=== PATIENT | female | born 2000 | race Caucasian/White ===

== ENCOUNTER 2022-03-04 20:34 | Day surgery (SDC) | payer OTHER ==
[2022-03-04 21:09] VITALS: BMI 33.5
[2022-03-04] MEDS ORDERED: hydrALAZINE 20 MG/ML VIAL SLOW IVP PRN (22:04)
[2022-03-04 22:58] LABS: Bilirubin Neg (Negative); Blood, Urine 25 (Negative); Glucose, Urine (Dipstick) Normal (Negative); Ketone, Urine 5 mg/dL (Negative); Leukocyte 100 (Negative); Nitrite Negative (Negative); Protein, Urine (Dipstick) 30 mg/dl (Neg-Trace); Specific Gravity, Urine 1.025 (1.005-1.030); Urobilinogen Normal mg/dL (Less than 2)
[2022-03-04 23:01] LABS: Clarity Turbid (Clear)
[2022-03-04 23:07] LABS: Bacteria/HPF 3+ HPF (None Seen); Calcium Oxalate Crystals 1+ HPF (None Seen); Mucous/LPF 4+ LPF (<2+); RBC/HPF 0-3 HPF (0-3); Squamous Epithelial 21-50 HPF (0-3)
[2022-03-04 23:55] LABS: Bilirubin Neg (Negative); Blood, Urine 10 (Negative); Clarity Cloudy (Clear); Glucose, Urine (Dipstick) Normal (Negative); Ketone, Urine 5 mg/dL (Negative); Leukocyte 25 (Negative); Nitrite Negative (Negative); Protein, Urine (Dipstick) 30 mg/dl (Neg-Trace); Specific Gravity, Urine 1.025 (1.005-1.030); Urobilinogen Normal mg/dL (Less than 2)
[2022-03-05 00:03] LABS: Bacteria/HPF 1+ HPF (None Seen); RBC/HPF 0-3 HPF (0-3)
[2022-03-05 00:04] LABS: Mucous/LPF 4+ LPF (<2+)
== END 2022-03-05 00:25 | disposition home or self-care (01) ==
LOC: CSHLD/OP 20:34
PROVIDERS: ATTEND Obstetrics & Gynecology
DX: O46.93 Antepartum hemorrhage, unspecified, third trimester (principal); O36.8130 Decreased fetal movements, third trimester, not applicable or unspecified; O98.813 Other maternal infectious and parasitic diseases complicating pregnancy, third trimester; B37.31 Acute candidiasis of vulva and vagina; B96.89 Other specified bacterial agents as the cause of diseases classified elsewhere; Z3A.32 32 weeks gestation of pregnancy
CPT/HCPCS: 76819; 81001; 87480; 87510; 87660

== ENCOUNTER 2022-03-21 20:04 | Day surgery (SDC) | payer OTHER ==
[2022-03-21 20:23] VITALS: BMI 33.9
[2022-03-21] MEDS ORDERED: hydrALAZINE 20 MG/ML VIAL SLOW IVP PRN (20:23)
[2022-03-21] MEDS ORDERED: Promethazine HCl 25 MG in Sodium Chloride 0.9% 50 ML IVPB PRN (20:24)
[2022-03-21] MEDS ORDERED: Metoclopramide HCl 10 MG/2 ML VIAL IVP SCH (20:30)
[2022-03-21] MEDS ORDERED: Lactated Ringer's 1,000 ML IV SCH (20:30)
[2022-03-21 21:11] LABS: #Monocytes 0.4 10x3/uL (0.0-1.1); #Neutrophils 7.5 10x3/uL (1.5-8.4); %Basophils 0.2 % (0.0-2.0); %Eosinophils 0.1 % (0.0-6.0); %Lymphocytes 9.9 % (18.0-47.0); %Monocytes 4.3 % (0.0-10.0); Hemoglobin 11.4 g/dL (12.0-15.5); Mean Corpuscular HGB CONC 32.9 g/dL (32.0-36.0); Mean Corpuscular Hemoglobin 26.2 pg (27.0-33.0); Mean Corpuscular Volume 79.8 fl (81.6-98.3); Mean Platelet Volume 10.3 fl (7.4-10.4); Platelet Count 207 10x3/uL (150-450); RBC Distribution Width 14.3 % (11.5-14.5); Red Blood Cell (RBC) Count 4.35 10x6/uL (3.90-5.03); White Blood Cell (WBC) Count 8.8 10x3/uL (3.5-10.5)
[2022-03-21 21:16] LABS: ALT (SGPT) 33 U/L (8-55); AST (SGOT) 19 U/L (5-34); Albumin 3.6 g/dL (3.5-5.0); Alkaline Phosphatase 122 U/L (40-110); Anion Gap 16 mmol/L (10-20); BUN (Urea Nitrogen) 10 mg/dL (7.0-18.7); Bilirubin, Total 0.6 mg/dL (0.2-1.2); Calc. Creatinine Clearance 162 mL/min (70-130); Calcium 8.9 mg/dL (7.8-10.44); Carbon Dioxide 17 mmol/L (22-29); Chloride 108 mmol/L (98-107); Estimated GFR 127; Globulin 3.5 g/dL (2.4-3.5); Glucose 81 mg/dL (70-105); Potassium 3.7 mmol/L (3.5-5.1); Protein, Total 7.1 g/dL (6.0-8.3); Sodium 137 mmol/L (136-145)
[2022-03-21 21:37] LABS: SARS-CoV-2 NAA Rapid Test Not Detected (NotDetected)
[2022-03-22] MEDS ORDERED: Metoclopramide HCl 10 MG/2 ML VIAL IVP SCH (06:00)
== END 2022-03-21 22:30 | disposition home or self-care (01) ==
LOC: CSHLD/OP 20:04
PROVIDERS: ATTEND Obstetrics & Gynecology
DX: O21.2 Late vomiting of pregnancy (principal); O26.893 Other specified pregnancy related conditions, third trimester; R10.13 Epigastric pain; Z20.822 Contact with and (suspected) exposure to COVID-19; Z3A.34 34 weeks gestation of pregnancy
CPT/HCPCS: 80053; 85025; J2550; J2765

== ENCOUNTER 2022-04-14 20:03 | Day surgery (SDC) | payer OTHER ==
[2022-04-14 20:35] VITALS: BMI 32.3
[2022-04-14] MEDS ORDERED: hydrALAZINE 20 MG/ML VIAL SLOW IVP PRN (21:55)
== END 2022-04-14 22:22 | disposition home or self-care (01) ==
LOC: CSHLD/OP 20:03
PROVIDERS: ATTEND Obstetrics & Gynecology
DX: O47.1 False labor at or after 37 completed weeks of gestation (principal); Z3A.40 40 weeks gestation of pregnancy

== ENCOUNTER 2022-04-20 05:30 | Inpatient (IN) | payer OTHER ==
[2022-04-27] MEDS ORDERED: Promethazine HCl 25 MG/ML VIAL IM PRN ×2 (01:48→14:48)
[2022-04-27] MEDS ORDERED: Tranexamic Acid 1,000 MG in Sodium Chloride 0.9% 250 ML 250 ML IVPB PRN (01:48)
[2022-04-27] MEDS ORDERED: Methylergonovine 0.2 MG/ML VIAL IM PRN (01:48)
[2022-04-27] MEDS ORDERED: Docusate 100 MG CAP PO PRN (01:48)
[2022-04-27] MEDS ORDERED: HYDROcodone/Acetaminophen 5/325 mg Tablet PO PRN ×2 (01:48)
[2022-04-27] MEDS ORDERED: Acetaminophen 500 MG TAB PO PRN (01:48)
[2022-04-27] MEDS ORDERED: Diphenoxylate HCl/Atropine Tablet PO PRN ×3 (01:48→22:51)
[2022-04-27] MEDS ORDERED: Misoprostol 200 MCG TAB PR PRN (01:48)
[2022-04-27] MEDS ORDERED: Lidocaine 1% (PF) 30 ML VIAL SC PRN (01:48)
[2022-04-27] MEDS ORDERED: Ibuprofen 800 MG TAB PO PRN (01:48)
[2022-04-27] MEDS ORDERED: hydrALAZINE 20 MG/ML VIAL SLOW IVP PRN (01:48)
[2022-04-27] MEDS ORDERED: Ondansetron PF 4 MG/2 ML Vial IVP PRN ×2 (01:48→14:48)
[2022-04-27] MEDS ORDERED: Butorphanol Tartrate 1 MG/ML VIAL SLOW IVP PRN (01:48)
[2022-04-27] MEDS ORDERED: Carboprost 250 MCG/ML AMP IM PRN (01:48)
[2022-04-27] MEDS ORDERED: NS w/ Oxytocin 30 units 500 ML IV SCH ×2 (06:00)
[2022-04-27] MEDS: Lactated Ringer's 1,000 ML IV SCH ×2 (06:16→13:30)
[2022-04-27 06:28] VITALS: BMI 33.9
[2022-04-27 06:35] LABS: Hemoglobin 10.8 g/dL (12.0-15.5); Mean Corpuscular HGB CONC 32.3 g/dL (32.0-36.0); Mean Corpuscular Hemoglobin 25.5 pg (27.0-33.0); Mean Platelet Volume 10.7 fl (7.4-10.4); Platelet Count 205 10x3/uL (150-450); RBC Distribution Width 14.4 % (11.5-14.5); Red Blood Cell (RBC) Count 4.23 10x6/uL (3.90-5.03); White Blood Cell (WBC) Count 9.4 10x3/uL (3.5-10.5)
[2022-04-27 07:03] LABS: SARS-CoV-2 NAA Rapid Test Not Detected (NotDetected)
[2022-04-27 07:06] LABS: Syphilis Antibody Nonreactive (Nonreactive); Syphilis Antibody Index 0.04 S/CO (<1.00 Non-Reactive)
[2022-04-27 07:08] LABS: HBSAg Index 0.11 S/CO (0-0.99); Hep B Surf Ag Non-Reactive S/CO (NonReactive)
[2022-04-27] MEDS ORDERED: Bupivacaine 0.25% HCL 30 ML VIAL ONE (08:00)
[2022-04-27] MEDS ORDERED: Fentanyl 2 mcg/Bup 0.1% Cadd 100 ML ONE (13:32)
[2022-04-27] MEDS ORDERED: Naloxone HCl 0.4 mg/ml Vial IVP PRN ×2 (14:48)
[2022-04-27] MEDS ORDERED: Acetaminophen 325 MG TAB PO PRN (14:48)
[2022-04-27] MEDS ORDERED: Lactated Ringer's 500 ML IV PRN (14:48)
[2022-04-27] MEDS ORDERED: Moisturizing Cream (Eucerin) 113 GM JAR TOP PRN (14:48)
[2022-04-27] MEDS ORDERED: ePHEDrine Sulfate 50 MG/10 ML VIAL SLOW IVP PRN (14:48)
[2022-04-27] MEDS ORDERED: diphenhydrAMINE 50 MG/ML VIAL IVP PRN (14:48)
[2022-04-27] MEDS ORDERED: Communication Order-Pharmacy FS SCH (15:00)
[2022-04-27] MEDS ORDERED: Fentanyl 2 mcg/Bupivacaine 0.1% Cassette 100 ML EPIDURAL SCH (15:00)
[2022-04-27] MEDS ORDERED: Misoprostol 200 MCG TAB ONE (22:16)
[2022-04-27 23:01] LABS: Hemoglobin 9.7 g/dL (12.0-15.5); Platelet Count 199 10x3/uL (150-450)
[2022-04-28] MEDS ORDERED: Promethazine HCl 25 MG/ML VIAL IM PRN (05:04)
[2022-04-28] MEDS ORDERED: Milk Of Magnesia 30 ML UDCUP PO PRN (05:04)
[2022-04-28] MEDS ORDERED: Methylergonovine 0.2 MG/ML VIAL IM PRN (05:04)
[2022-04-28] MEDS ORDERED: Lanolin Ointment 7 GM TUBE TOP PRN (05:04)
[2022-04-28] MEDS ORDERED: Boostrix 0.5 ML (Tdap) VIAL (>/=7 yrs of age) IM ONE (05:04)
[2022-04-28] MEDS ORDERED: Ondansetron PF 4 MG/2 ML Vial IVP PRN (05:04)
[2022-04-28] MEDS ORDERED: Varicella virus, LIVE 0.5 ML VIAL SC ONE (05:04)
[2022-04-28] MEDS ORDERED: hydrALAZINE 20 MG/ML VIAL SLOW IVP PRN (05:04)
[2022-04-28] MEDS ORDERED: Bisacodyl 10 MG SUPP PR PRN (05:04)
[2022-04-28] MEDS ORDERED: Benzocaine-Menthol 82.5 ML CAN TOP PRN (05:04)
[2022-04-28] MEDS ORDERED: diphenhydrAMINE 25 MG CAP PO PRN (05:04)
[2022-04-28] MEDS ORDERED: NS w/ Oxytocin 30 units 500 ML IV SCH (05:04)
[2022-04-28] MEDS ORDERED: Preparation H Ointment 28 GM TUBE PR PRN (05:04)
[2022-04-28] MEDS ORDERED: Misoprostol 200 MCG TAB VAG PRN (05:04)
[2022-04-28] MEDS ORDERED: Zolpidem Tartrate 5 MG TAB PO PRN (05:04)
[2022-04-28] MEDS ORDERED: Measles/Mumps/Rubella 10 MCG/0.5 ML VIAL SC ONE (05:04)
[2022-04-28] MEDS ORDERED: Docusate 100 MG CAP PO SCH (05:15)
[2022-04-28] MEDS: Lactated Ringer's 1,000 ML IV SCH (05:21)
[2022-04-28] MEDS: Ibuprofen 800 MG TAB PO SCH ×3 (05:36→21:19)
[2022-04-28] MEDS: Docusate 100 MG CAP PO SCH ×2 (05:36→21:18)
[2022-04-28] MEDS: Ferrous Sulfate 325 MG TAB PO SCH ×2 (08:00→18:44)
[2022-04-28] MEDS: Prenatal Vitamin 1 TAB PO SCH (08:00)
[2022-04-28] MEDS: HYDROcodone/Acetaminophen 5/325 mg Tablet PO PRN (12:42)
[2022-04-29] MEDS: HYDROcodone/Acetaminophen 5/325 mg Tablet PO PRN (02:12)
[2022-04-29 04:22] LABS: #Eosinphils 0.1 10x3/uL (0.0-0.5); #Monocytes 0.7 10x3/uL (0.0-1.1); %Basophils 0.3 % (0.0-2.0); %Lymphocytes 24.2 % (18.0-47.0); %Monocytes 6.7 % (0.0-10.0); %Neutrophils 67.2 % (40.0-75.0); Hemoglobin 7.8 g/dL (12.0-15.5); Mean Corpuscular HGB CONC 32.1 g/dL (32.0-36.0); Mean Corpuscular Hemoglobin 25.7 pg (27.0-33.0); Mean Corpuscular Volume 80.2 fl (81.6-98.3); Mean Platelet Volume 10.7 fl (7.4-10.4); Platelet Count 183 10x3/uL (150-450); RBC Distribution Width 14.7 % (11.5-14.5); Red Blood Cell (RBC) Count 3.03 10x6/uL (3.90-5.03); White Blood Cell (WBC) Count 10.4 10x3/uL (3.5-10.5)
[2022-04-29] MEDS: Ibuprofen 800 MG TAB PO SCH ×2 (06:11→13:31)
[2022-04-29] MEDS: Prenatal Vitamin 1 TAB PO SCH (08:45)
[2022-04-29] MEDS: Docusate 100 MG CAP PO SCH (08:45)
[2022-04-29] MEDS: Ferrous Sulfate 325 MG TAB PO SCH (08:45)
[2022-04-29] MEDS ORDERED: Cepastat Lozenges 1 LOZ PO PRN (10:25)
[2022-04-29 17:53] VITALS: BP 108/71; TEMP 97.8
== END 2022-04-29 16:40 | disposition home or self-care (01) | DRG 806 ==
LOC: CSHLD 04-27 05:54 → CSHPED 04-28 04:38
PROVIDERS: ADMIT Obstetrics & Gynecology; ATTEND Obstetrics & Gynecology
PROC: 10E0XZZ Delivery of Products of Conception, External Approach (ICD-10-PCS; principal; 2022-04-27)
PROC: 0HQ9XZZ Repair Perineum Skin, External Approach (ICD-10-PCS; 2022-04-27)
DX: O70.0 First degree perineal laceration during delivery (principal); O72.1 Other immediate postpartum hemorrhage; Z37.0 Single live birth; O71.82 Other specified trauma to perineum and vulva; Z3A.40 40 weeks gestation of pregnancy; Z20.822 Contact with and (suspected) exposure to COVID-19
CPT/HCPCS: 36415; 51702; 85025; 85027; 86780; 86850; 86900; 86901; 87340; J2590; J7120; S0020; U0002